=== PATIENT | female | born 1980 | race Caucasian/White ===

== ENCOUNTER → 2018-04-08 | Outpatient (CLI) | payer OTHER | LOC: FIMAGING 07:20 | PROVIDERS: ATTEND Obstetrics & Gynecology | DX: O09.512 Supervision of elderly primigravida, second trimester (principal); Z3A.19 19 weeks gestation of pregnancy ==

== ENCOUNTER → 2018-05-13 | Outpatient (CLI) | payer OTHER | LOC: FLAB 14:13 | PROVIDERS: ATTEND Obstetrics & Gynecology | DX: O09.512 Supervision of elderly primigravida, second trimester (principal); Z3A.24 24 weeks gestation of pregnancy ==

== ENCOUNTER 2018-08-31 01:00 | Inpatient (IN) | payer OTHER | END 2018-09-03 12:00 | disposition home or self-care (01) | LOC: FLD 01:00 → FOB 09-01 10:30 ==

== ENCOUNTER 2018-09-05 18:15 | Observation (INO) | payer OTHER | END 2018-09-05 20:30 | disposition home or self-care (01) | LOC: FLD 18:15 ==